=== PATIENT | male | born 1940 | race Caucasian/White ===

== ENCOUNTER → 2017-09-14 | Day surgery (SDC) | payer MEDICARE, MEDICAID ==
[2017-09-06 13:23] VITALS: BMI 20.9
[~2017-09-14] MED LIST: Carbachol 0.01% IO ONE; Chondroitin/Hyaluronate 40 mg/ml-30 mg/ml Ophth Syringe (0.5 ml) IO ONE; Chondroitin/Hyaluronate Opth Syringe KIT (0.55 ml-0.5 ml) IO ONE; Ciprofloxacin 0.3% OPTH SOLN OS SCH; Flurbiprofen 0.03% Opht SOLN OS SCH; Hyaluronidase Human, Recombi 150 U/ML VIAL ONE; Lactated Ringer's 1,000 ML IV ONE; Lactated Ringer's 500 ML IV ONE; Midazolam 2 MG/2 ML VIAL ONE; Phenylephrine 2.5% Opht Soln OS SCH; Povidone Iodine Ophthalmic 5% Soln ONE; Tetracaine 0.5% Ophth (OR ONLY) ONE; Tobramycin/Dexamethasone OPHT OINT ONE; Tropicamide 1% Opht SOLUTION OS SCH; acetaZOLAMIDE 500 mg SR Cap PO ONE
[2017-09-14] MEDS: Lidocaine 2% MPF (5 ml) Inj ONE (11:05)
[2017-09-14 12:01] VITALS: RESP 17; O2SAT 100
[2017-09-14 12:36] VITALS: BP 105/51; PULSE 53
[2017-09-14 12:37] VITALS: TEMP 97.4
--- NOTE | 2017-09-14 22:42 | OP ---
PROCEDURE DATE: 09/14/2017 PREOPERATIVE DIAGNOSIS: Cataract, left eye. POSTOPERATIVE DIAGNOSIS: Cataract, left eye. OPERATIVE PROCEDURE: Phacoemulsification, left eye, insertion of posterior chamber implants. SURGEON: Néstor Napier MD CO-SURGEON: Sonido Worley MD ANESTHESIA TYPE: Local intravenous sedation. PROCEDURE: The patient was brought into the operating room, placed in supine position, prepped and draped in the usual fashion for ophthalmic surgery. Lid speculum was inserted, lids and exposing globe. A side-port incision was made superiorly and inferiorly with a disposable sharp blade. Anterior chamber was filled with Viscoat. A near clear corneal incision was made temporally with a 2.75-mm keratome. Capsulorrhexis was then performed with Utrata forceps. Hydrodissection carried out with balanced salt solution. Nucleus was phacoemulsified. Remaining cortical fragments were removed with a split irrigation and aspiration system. The capsular sac was filled with Provisc. A posterior chamber lens was then injected into the capsular sac and rotated into horizontal position. Provisc was aspirated out of the anterior chamber. The pupil was constricted with Miochol. The wound was found to be watertight. Topical Betadine, Timoptic, and TobraDex ointment and pressure patch were applied. The patient tolerated the procedure well. Néstor Napier MD
== END | disposition home or self-care (01) ==
LOC: C.SDS 08:12
PROVIDERS: ATTEND Ophthalmology
DX: H25.12 Age-related nuclear cataract, left eye (principal)
CPT/HCPCS: 66984; 82948; J2250; J3010; J3470; J7120; V2632

== ENCOUNTER 2017-11-24 07:07 | Day surgery (SDC) | payer MEDICARE, MEDICAID ==
[2017-10-04 09:14] VITALS: BMI 23.6
[2017-11-24] MEDS ORDERED: Propofol 10 mg/ml Inj (20 ML) ONE (09:47)
[2017-11-24 10:13] VITALS: O2SAT 100
[2017-11-24 10:31] VITALS: TEMP 98
[2017-11-24 12:23] VITALS: BP 174/77; PULSE 49; RESP 18
== END 2017-11-24 11:30 | disposition home or self-care (01) ==
LOC: C.ENDO 07:07
PROVIDERS: ATTEND Internal Medicine Gastroenterology
DX: K92.1 Melena (principal); D12.5 Benign neoplasm of sigmoid colon; D12.3 Benign neoplasm of transverse colon; K64.8 Other hemorrhoids; K57.30 Diverticulosis of large intestine without perforation or abscess without bleeding
CPT/HCPCS: 45380; 82948; 88305; J2001; J2704